=== PATIENT | male | born 1990 | race Caucasian/White ===

== ENCOUNTER 2018-12-16 18:16 | Emergency (ER) | payer OTHER ==
[2018-12-16 18:21] VITALS: BP 133/95; PULSE 110; TEMP 99.1; BMI 38.0
[2018-12-16] MEDS ORDERED: ACETAMINOPHEN 325 MG TABLET (FP) PO ONE (18:41)
--- NOTE | 2018-12-16 18:48 | PDOC ---
History of Present Illness - General Chief Complaint: Pain Stated Complaint: GENITAL DISCOMFORT Time Seen by Provider: 12/16/18 18:37 History Source: Patient - History of Present Illness Timing/Duration: reports: constant, getting worse Quality: reports: severe Past History - Past Medical History Allergies/Adverse Reactions: Allergies Allergy/AdvReac Type Severity Reaction Status Date / Time No Known Allergies Allergy Verified 12/16/18 18:21 Home Medications: Ambulatory Orders Doxycycline Hyclate 100 mg PO BID #19 tablet 12/16/18 Ibuprofen [Motrin -] 600 mg PO QID #28 tablet 12/16/18 COPD: No - Suicide/Smoking/Psychosocial Hx Smoking History: Current every day smoker Number of Cigarettes Smoked Daily: 10 Information on smoking cessation initiated: No Review of Systems - Review of Systems Constitutional: No: Chills, Fever ABD/GI: No: Nausea, Vomiting, Abdominal cramping : Yes: Testicular Pain. No: Burning, Dysuria, Discharge, Flank Pain, Hematuria, Testicular Mass, Testicular Swelling, Lesions *Physical Exam - Vital Signs Last Vital Signs Temp Pulse Resp BP Pulse Ox 99.1 F 110 H 18 133/95 99 12/16/18 18:18 12/16/18 18:18 12/16/18 18:18 12/16/18 18:18 12/16/18 18:18 - Physical Exam General Appearance: Yes: Appropriately Dressed, Moderate Distress HEENT: positive: Normal Voice Neck: positive: Supple Respiratory/Chest: negative: Respiratory Distress Gastrointestinal/Abdominal: positive: Soft. negative: Tender Male Genitalia: positive: other (scrotal skin surrounding L testes w/ minimal erythema and sig ttp, no scrotal mass or lesions) Musculoskeletal: negative: CVA Tenderness Integumentary: positive: Dry, Warm Neurologic: positive: Fully Oriented, Alert, Normal Mood/Affect ED Treatment Course - RADIOLOGY Radiology Studies Ordered: Category Date Time Status SCROTUM AND CONTENTS US [US] Stat Ultrasound 12/16/18 18:40 Ordered Medical Decision Making - Medical Decision Making 12/16/18 18:43 28 yo morbidly obesed male, here w/ severe L testes pain that started shortly after [place] of [place] pool [place]. States automatic waves were "were constantly hitting" groin area. Pain has been constant since, hurts more when sitting and when palpating site. Pain not improved w/ 800mg motrin today. Denies n/v/f/c, penile discharge, lesions or dysuria. No new sexual partners See exam Possible testicular contusion, r/o torsion, less likely orchitis/epididymitis or hydrocele/varicocele -US -UA -pain control 12/16/18 20:39 US neg for torsion or mass but showed mild increased vascularity of L testes compared to R suggestive of ? epididymitis per radiology. UA neg, std cxs sent. Dose of ceftriaxone and doxy given here. Dc w/ doxy and motrin. To return to ED as needed *DC/Admit/Observation/Transfer Diagnosis at time of Disposition: Testicular pain, left - Discharge Dispostion Disposition: HOME Condition at time of disposition: Improved - Prescriptions Prescriptions: Doxycycline Hyclate 100 mg PO BID #19 tablet Ibuprofen [Motrin -] 600 mg PO QID #28 tablet - Referrals - Patient Instructions Printed Discharge Instructions: Epididymitis Additional Instructions: Your ultrasound shows a possible mild inflammation of your epipidydimitis. Take medications as directed You can also apply ice to area and elevated scrotum at home for comfort We did send off testing for STDs and will call you in 3-5 days if results are positive Return to ED as needed - Post Discharge Activity
[2018-12-16] MEDS ORDERED: ACETAMINOPHEN 325 MG TABLET (FP) ONE (19:04)
[2018-12-16 20:40] LABS: PH,URINE 5.5 (5.0-8.0); URINE APPEARANCE CLEAR; URINE BILIRUBIN NEGATIVE (NEGATIVE); URINE COLOR YELLOW; URINE GLUCOSE (UA) NEGATIVE (NEGATIVE); URINE KETONE NEGATIVE (NEGATIVE); URINE LEUK ESTERASE NEGATIVE (NEGATIVE); URINE NITRITE NEGATIVE (NEGATIVE); URINE PROTEIN NEGATIVE (NEGATIVE); URINE UROBILINOGEN 0.2 mg/dL (0.2-1.0)
[2018-12-16] MEDS ORDERED: DOXYCYCLINE HYCLATE 100 MG CAPSULE PO ONE ×2 (20:42→20:48)
[2018-12-16] MEDS ORDERED: cefTRIAXone SODIUM 1 GM VIAL ONE (20:48)
== END 2018-12-16 20:56 | disposition home or self-care (01) ==
LOC: JER 18:16
DX: N50.812 Left testicular pain (principal)
CPT/HCPCS: 36415; 76870-TC; 81003; 87491; 87591; 96372; 99282-25